=== PATIENT | male | born 1990 | race Caucasian/White ===

== ENCOUNTER 2021-01-13 10:55 | Outpatient (RCR) | payer BC ==
[2021-01-13 12:03] LABS: SEMEN VOLUME 1.8 ML (1.5-5.0)
== END 2021-04-13 | disposition home or self-care (01) ==
LOC: EDSTATUS 10:55 → LAB 10:55
PROVIDERS: ATTEND Nurse Practitioner Family
DX: N46.9 Male infertility, unspecified (principal)
CPT/HCPCS: 89320